=== PATIENT | male | born 1945 | race Caucasian/White ===

== ENCOUNTER → 2016-10-16 | Outpatient (CLI) | payer MEDICARE, OTHER ==
--- NOTE | 2016-10-17 06:52 | XR ---
EXAMINATION TYPE: XR lumbosacral spine min 4V DATE OF EXAM: 10/16/2016 2:46 PM CLINICAL HISTORY: Strain injury with pain TECHNIQUE: Frontal, lateral, and oblique images of the lumbar spine are obtained. COMPARISON: None FINDINGS: Osseous structures are demineralized which is noted to lower radiographic sensitivity. Fro ntal view is suboptimal as does not include entire top of L1 vertebra. There are 5 lumbar type verteb ral bodies identified. The visualized lumbar spine shows satisfactory alignment without evidence of acute fracture or dislocation. Vertebral body heights and disk space heights are within normal limits . There is mild multilevel spurring with more prominent moderate lateral spurring seen at L2-L3 art iculation anteriorly and laterally. Facet arthropathy is present in lower lumbar levels. The oblique images appear within normal limits. Some mild overlying vascular calcification is present. IMPRESSION: Demineralization with multilevel degenerative changes as detailed above.
== END | disposition home or self-care (01) ==
LOC: RADXRYALE 14:27
PROVIDERS: ATTEND Internal Medicine
DX: M47.816 Spondylosis without myelopathy or radiculopathy, lumbar region (principal)
CPT/HCPCS: 72110